=== PATIENT | female | born 1950 | race Caucasian/White ===

== ENCOUNTER 2025-11-09 15:06 | Emergency (ER) | payer MEDICARE, OTHER, SELFPAY ==
[2025-11-09 15:12] VITALS: BP 165/91
[2025-11-09 15:37] LABS: Hematocrit 41.6 % (37.0-47.0); Hemoglobin 13.8 g/dL (12.0-16.0); Mean Corp Hgb Conc. 33.2 g/dL (33.0-37.0); Mean Corpuscular Volume 94.8 fL (81.0-99.0); Nucleated Red Blood Cells % 0 %; Platelet Count 290 10^3/uL (130-400); Red Cell Dist. Width 13.1 % (11.5-14.5)
[2025-11-09 15:59] LABS: ALT (SGPT) 14 U/L (0-35); AST (SGOT) 24 U/L (14-36); Albumin 4.3 g/dl (3.5-5.0); Alkaline Phosphatase 93 U/L (38-126); Blood Urea Nitrogen 15 mg/dl (7-17); Calcium 9.4 mg/dl (8.4-10.2); Carbon Dioxide 25 mmol/L (22-30); Chloride 108 mmol/L (98-107); Glucose 103 mg/dl (70-99); Potassium 4.1 mmol/L (3.5-5.1); Sodium 138 mmol/L (135-145); Total Protein 7.3 g/dl (6.3-8.2); eGFR > 60.00
[2025-11-09 16:11] LABS: Troponin I < 0.012 ng/ml
[2025-11-09 17:01] VITALS: BP 162/75
[2025-11-09 17:03] VITALS: BMI 25.6
[2025-11-09] MEDS: NSS 1000 IV (17:24)
[2025-11-09 17:55] LABS: COVID-19 Antigen Negative (Negative)
--- NOTE | 2025-11-09 19:02 | ED.GENMED ---
History of Present Illness
General
Chief Complaint: Dizziness
Source: patient
Exam Limitations: none
Time Seen by Provider: 11/09/25 16:58
Nursing documentation reviewed up to this point in time: agreed with
History of Present Illness
History of Present Illness:
Patient is a 74-year-old female who presents to the emergency department for evaluation of dizziness. Patient states that she woke up this morning and while lying in bed, turned over to her left side and had acute onset of dizziness, described as a
spinning sensation. Symptoms were significantly exacerbated with movements. She fell back asleep and upon waking a few hours later symptoms were improved. She reports some lingering �lightheadedness� sensation, however denies any remaining spinning
or dizziness.
Patient denies any other associated symptoms this morning including headache, neck pain, ataxia, diplopia, dysarthria. No recent fever or chills.
She does feel that her left ear has been clogged over the past few months, however denies any pain. She has a history of cerumen impactions.
While patient is essentially asymptomatic on arrival to ED � she states that she was worried that symptoms would recur again prompting visit for evaluation.
She denies any history of similar symptoms.
Past History
Past History
ED Past Medical History: Negative HTN, Hypercholesterolemia, IDDM or NIDDM
ED Past Surgical History: Other (Lumpectomy)
Social History
Tobacco: Non-smoker
Personal:
Living: with family
Family History
Family History: Negative Early CAD
Review of Systems
Review of Systems
Allergies reviewed?: Yes
All Other Systems: ROS reviewed and negative except as documented in HPI and ROS
Phy Exam
Physical Exam
Physical Exam:
Vitals: Hypertensive, otherwise vital signs stable. Afebrile
General: Patient is well appearing, no acute distress
Skin: Warm and dry, no rashes or lesions
Head: Normocephalic, atraumatic
Eyes: Sclera nonicteric. EOMs intact. Visual power intact. No nystagmus. No reproducible symptoms with head movements to right or left side.
Throat: Protecting airway
Neck: Normal ROM, no cervical spine tenderness, no meningismus
Cardiac: Regular rate and rhythm, no murmurs.
Pulm: Normal respiratory effort. Lungs clear bilaterally.
.
Abdomen: No abdominal tenderness.
Extremities: No evidence of cyanosis or edema.Strength 5/5 in bilateral upper and lower extremities.
Neuro: AAOx3. CN II-XII grossly intact. Normal finger to nose. No facial droop or asymmetry. Steady gait. No focal neurologic deficits.
Psychiatric: Normal affect.
Course
Orders/Labs/Results
Orders:
Orders
11/09/25 15:07
EKG [Electrocardiogram (*1)] Urgent
Reason for Study: Vertigo / Dizzy
EKG- Treatment ONCE
11/09/25 15:09
Electrocardiogram (*1) Urgent
Reason for Study: Chest Pain
EKG- Treatment ONCE
11/09/25 15:28
Complete Blood Count/With Diff Urgent
Comprehensive Metabolic Panel Urgent
Troponin I Urgent
11/09/25 17:13
0.9% Sodium Chloride 1000 ml [Nss] 1,000 ml IV BOLUS
11/09/25 17:15
CT Head W/o Iv Contrast Urgent
Comment:
Reason For Exam: dizziness
11/09/25 17:21
COVID-19 Antigen Urgent
Source: Nasal Swab
Influenza A+B Rapid Molecular Urgent
CALLUM Source: Nasal Swab
Specimen Description:
Abnormal Lab Results
11/09/25
15:28
MCH 31.4 H pg
(27.0-31.0)
Chloride 108 H mmol/L
(98-107)
Glucose 103 H mg/dl
(70-99)
11/09/25 15:28
11/09/25 15:28
Vital Signs
Initial and Last Documented VS:
Initial Vital Signs
Temp Pulse Resp BP Pulse Ox
98.4 F 72 16 165/91 99
11/09/25 15:12 11/09/25 15:12 11/09/25 15:12 11/09/25 15:12 11/09/25 15:12
Last Documented Vital Signs
Temp Pulse Resp BP Pulse Ox
98.7 F 68 14 148/94 98
11/09/25 19:40 11/09/25 19:40 11/09/25 19:40 11/09/25 19:40 11/09/25 20:04
MDM/Problems Addressed
Differential Diagnosis Includes:
Not limited to: peripheral veritgo including BPPV, labyrnthitis, acute dehydration, viral illness, CVA, etc
MDM/Problems Addressed:
74-year-old female presenting with positional dizziness, which occurred upon waking this morning however, has since resolved. Reports feeling sense of spinning after rolling over in bed. No other associated neurological symptoms including ataxia,
dysarthria, dysphasia, diplopia, headache.
Vitals and physical exam as above. Patient appears well and in no distress. She is alert and oriented without any focal neurologic deficits. Normal cerebellar exam. Normal strength bilaterally. Unable to reproduce symptoms in department as they have
largely resolved. Cardio/pulmonary assessment unremarkable. No evidence of otitis media,
Basic labs and head CT without acute abnormalities. Cardiac enzyme negative. Viral studies negative. EKG without evidence of acute ischemia.
Symptoms seem most consistent with a peripheral vertigo, likely BPPV. Less likely central cause.
She has remained asymptomatic in ED and has ambulated around apartment without recurring dizziness or ataxia. Feel stable for discharge home with strict return precautions. Will send prescription for meclizine and advise vestibular therapy
outpatient if symptoms return. Patient comfortable with plan.
Chronic conditions affecting care:
N/A
Acute Exacerbation and/or Progression of Chronic Illness:
N/A
*Radiology
Radiology exam reviewed: radiology read reviewed
*Pulse Oximetry
SaO2: 98
Oxygen Mode of Delivery: Room air
Patient hypoxic: no
*EKG
Interpreted by ED Provider?: Yes
EKG Intrepretation Date: 11/09/25
Interpretation: abnormal
Comparison EKG: no changes
Heart Rate: 68
Rate: normal
Rhythm: sinus
[place]: left axis deviation
Interval: normal QT interval
QRS Pattern: normal QRS
Ischemia: no ischemia
*Developmental Psychologist Interpretation
Rate: normal
Interpretation: normal
Heart Rate: 70
Rhythm: sinus
*Critical Care Note
Total Time (30-74mins, 75-104mins- exclusive of procedures): Not Applicable
ED Attending Note
-
Portions of this chart may have been created with voice recognition software.� Occasional wrong word or��sound alike� substitutions may have occurred due to the inherent limitations of voice recognition software.
Discharge Plan
Departure
Patient Disposition: Home (Routine Discharge)
Date of Disposition: 11/09/25
Time of Disposition: 19:17
Patient with high blood pressure during this ER visit?: Yes
Covid-19: Negative COVID-19
Discharge Problem:
Dizziness
Instructions: Vertigo (a Type of Dizziness) (DC), BLOOD PRESSURE
Prescriptions:
New
meclizine 25 mg tablet
25 mg PO BID PRN (Reason: dizziness) Qty: 10 0RF
No Action
zolpidem 10 MG tablet
10 mg PO HSPRN PRN (Reason: insomnia)
Zoloft:
1 cap PO HS
prednisone 10 mg tablet
10 mg PO DAILY Qty: 40 0RF
Rx Instructions:
60mg for 3 days, 40mg for 3 days, 20mg for 3 days, 10mg for 3 days then stop.
hydrocodone-acetaminophen 5-325 mg tablet
2 tab PO Q4H PRN (Reason: pain) Qty: 15 0RF
Referrals:
UNKNOWN - PT DOES,NOT KNOW [Unknown Provider]
Activity Restrictions/Additional Instructions:
RETURN TO THE EMERGENCY DEPARTMENT ANY SEVERE HEADACHE OR NECK PAIN, CHANGES IN VISION, PERSISTENT DIZZINESS/LIGHTHEADEDNESS, BALANCE DIFFICULTY, SPEECH DIFFICULTY, WORSENING IN CURRENT SYMPTOMS, OR ANY OTHER CONCERNS
- As discussed your lab work and viral study showed no acute abnormalities. The CT of your head did not show any acute findings
- Your symptoms seem most consistent with a peripheral vertigo. I did send a prescription to your pharmacy for meclizine which you can take if symptoms return. I have also given you the information for outpatient vestibular therapy. Please do not
take meclizine prior to PT appointments
- Please stay well-hydrated. Move slowly to sitting to standing.
- Follow-up with your primary care provider for further evaluation/management to ensure that your symptoms are improving
Monitor your symptoms closely and return to the emergency department with any acute worsening/new symptoms or any other concern
Interventions
Interventions:
*Risk Screen - Suicide Last Done: 11/09/25 15:12
*General Assessment Last Done: 11/09/25 17:04
*Neglect/Abuse Screening Last Done: 11/09/25 15:12
*ED COVID-19 Vaccine History Last Done: 11/09/25 17:04
*ED Influenza Vaccine History Last Done: 11/09/25 17:04
[facility] Fall Risk Assessment Tool Last Done: 11/09/25 17:04
*Nursing Disposition Last Done: 11/09/25 19:40
ED- Neurological Assessment Last Done: 11/09/25 17:04
ED Swallowing Screen Last Done: 11/09/25 17:27
Discharge Date and Time
Discharge Date/Time: 11/09/25 19:52
Print Language: ROMANIAN
[2025-11-09 19:40] VITALS: BP 148/94
== END 2025-11-09 19:52 | disposition home or self-care (01) ==
LOC: EMR 15:06
PROVIDERS: Emergency Medicine; Physician Assistant; EMERGENCY PHYSICIAN Emergency Medicine; FAMILY PHYSICIAN Family Medicine Adult Medicine
DX: R42 Dizziness and giddiness (principal); Z11.52 Encounter for screening for COVID-19
CPT/HCPCS: 96360; 99284; 70450; 80053; 84484; 85025; 87502; 87811; 93005